=== PATIENT | female | born 1995 | race Hispanic/Latino ===

== ENCOUNTER 2017-09-24 21:29 | Emergency (ER) | payer BC ==
[~2017-09-24] VITALS: Ht 157.5 cm; Wt 90.7 kg
[2017-09-24] MEDS ORDERED: ONDANSETRON HCL INJ 2 MG/ML VIAL IV STA (21:48)
[2017-09-24] MEDS ORDERED: SODIUM CHLORIDE 0.9% 500ML 500 ML IV ONE (22:00)
[2017-09-24 23:57] VITALS: BP 150/90
== END 2017-09-24 22:50 | disposition home or self-care (01) ==
LOC: FSED 21:29
DX: R11.2 Nausea with vomiting, unspecified (principal); R19.7 Diarrhea, unspecified
CPT/HCPCS: 85025; 99283; J2405; J7040

== ENCOUNTER 2021-11-30 20:29 | Observation (INO) | payer BC, OTHER ==
[~2021-11-30] VITALS: Ht 157.5 cm; Wt 88.9 kg
[~2021-11-30 20:29] MED LIST: FENTANYL CITRATE/PF 100MCG/2 ML INJ ONE; MIDAZOLAM HCL 2 MG/2 ML VIAL ONE
[2021-11-30] MEDS ORDERED: ONDANSETRON HCL INJ 2MG/ML 2ML 2 MG/ML VIAL IV STA (21:44)
[2021-11-30] MEDS ORDERED: SODIUM CHLORIDE 0.9% 1000ML 1,000 ML IV SCH (21:45)
[2021-11-30] MEDS ORDERED: SODIUM CHLORIDE 0.9% 1000ML 1,000 ML ONE (22:33)
[2021-11-30] MEDS ORDERED: ONDANSETRON HCL INJ 2MG/ML 2ML 2 MG/ML VIAL ONE (22:33)
[2021-11-30] MEDS ORDERED: KETOROLAC TROMETHAMINE 30 MG/ML VIAL IV STA (22:39)
[2021-11-30] MEDS ORDERED: IOPAMIDOL 370 MG/ML 100 ML INFUS..BTL INJ ONE (23:05)
[2021-12-01] VITALS (8 sets, daily range): BP systolic 128–147; BP diastolic 61–90
[2021-12-01] MEDS ORDERED: SODIUM CHLORIDE 0.9% 500ML 500 ML IV ONE (00:15)
[2021-12-01] MEDS ORDERED: PROMETHAZINE 12.5MG/ NACL 0.9% 12.5 MG/50 ML BAG IV ONE (00:15)
[2021-12-01] MEDS ORDERED: SODIUM CHLORIDE 0.9% 500ML 500 ML ONE (00:25)
[2021-12-01] MEDS ORDERED: PROMETHAZINE HCL (IM) 25 MG/ML VIAL IM ONE (00:25)
[2021-12-01] MEDS ORDERED: KETOROLAC TROMETHAMINE 30 MG/ML VIAL ONE ×2 (00:27→13:56)
[2021-12-01] MEDS ORDERED: ONDANSETRON HCL INJ 2MG/ML 2ML 2 MG/ML VIAL IV PRN (01:45)
[2021-12-01] MEDS ORDERED: PROMETHAZINE HCL (IM) 25 MG/ML VIAL IM PRN (01:45)
[2021-12-01] MEDS ORDERED: PIPERACILLIN/TAZOBACTAM 3.375 GM VIAL ONE (02:12)
[2021-12-01] MEDS: SODIUM CHLORIDE 0.9% 1000ML 1,000 ML IV SCH ×3 (03:34→18:30)
[2021-12-01] MEDS: HYDROMORPHONE 1MG/1ML INJ IV PRN ×2 (04:23→08:41)
[2021-12-01] MEDS ORDERED: LIDOCAINE 1% W/EPINEPHRINE 20 ML VIAL ONE (12:26)
[2021-12-01] MEDS ORDERED: GLYCOPYRROLATE INJ 0.2 MG/ML VIAL ONE (13:56)
[2021-12-01] MEDS ORDERED: PROPOFOL IV EMULSION 10 MG/ML 20 ML VIAL ONE (13:56)
[2021-12-01] MEDS ORDERED: ONDANSETRON HCL INJ 2MG/ML 2ML 2 MG/ML VIAL ONE (13:56)
[2021-12-01] MEDS ORDERED: NEOSTIGMINE 1 MG/ML 10ML VIAL ONE (13:56)
[2021-12-01] MEDS ORDERED: SEVOFLURANE INHAL SOLN 250 ML PEN BTL ONE (13:56)
[2021-12-01] MEDS ORDERED: LIDOCAINE HCL 2% LOCAL INJ 5 ML SDV VIAL INJ ONE (13:56)
[2021-12-01] MEDS ORDERED: DEXAMETHASONE SOD PHOS INJ 4 MG/ML SDV ONE (13:56)
[2021-12-01] MEDS ORDERED: POVIDONE IODINE 0.05% 0.05 % ML PO ONE (13:56)
[2021-12-01] MEDS ORDERED: ROCURONIUM BROMIDE 10 MG/ML 5ML VIAL IV ONE (13:56)
[2021-12-01] MEDS: HYDROCODONE/APAP 7.5MG-325MG 1 EA TAB PO PRN (22:47)
[2021-12-02] VITALS: BP 126/72
[2021-12-02] MEDS: SODIUM CHLORIDE 0.9% 1000ML 1,000 ML IV SCH ×3 (02:00→13:20)
[2021-12-02 04:00] VITALS: BP 118/64
[2021-12-02] MEDS: HYDROCODONE/APAP 7.5MG-325MG 1 EA TAB PO PRN ×2 (05:20→13:15)
[2021-12-02 05:53] LABS: BASOPHILS % 0.2 % (0.0-1.0); EOSINOPHILS % 0.2 % (0.0-6.0); HEMATOCRIT 33.5 % (34.2-44.1); HEMOGLOBIN 10.8 g/dL (12.0-16.0); LYMPHOCYTES # (AUTO) 2.6 (1.0-3.2); LYMPHOCYTES % 23.1 % (18.0-39.1); MEAN CORPUSCULAR HEMOGLOBIN 28.6 pg (28-32); MEAN CORPUSCULAR HGB CONC 32.2 g/dL (31-35); MEAN CORPUSCULAR VOLUME 88.9 fL (81-99); MONOCYTES # (AUTO) 0.8 (0.2-0.8); MONOCYTES % 7.1 % (4.4-11.3); NEUTROPHILS # (AUTO) 7.7 (2.1-6.9); NEUTROPHILS % 69.1 % (38.7-80.0); PLATELET COUNT 284 x10e3/uL (140-360); RED BLOOD COUNT 3.77 x10e6/uL (3.6-5.1); RED CELL DISTRIBUTION WIDTH 13.1 % (11.7-14.4)
[2021-12-02 06:08] LABS: ANION GAP 12.1 mmol/L (8-16); CALCIUM 7.7 mg/dL (8.4-10.2); CREATININE, SERUM 0.61 mg/dL (0.57-1.11); POTASSIUM 3.1 mmol/L (3.5-5.1)
[2021-12-02 08:03] VITALS: BP 114/68
[2021-12-02 09:00] VITALS: BP 114/68
[2021-12-02 11:51] VITALS: BP 124/68
[2021-12-02 16:08] VITALS: BP 125/75
[2021-12-02] MEDS ORDERED: KEFLEX125 MG/5 M PO ×3 (19:28→19:34)
== END 2021-12-02 20:16 | disposition home or self-care (01) ==
LOC: FSED 21:04 → INTOOBSV 12-01 01:44 → ERHOLD 12-01 01:44 → MED/SURG3 12-01 02:43
PROVIDERS: ADMIT Surgery; ATTEND Surgery
DX: K35.890 Other acute appendicitis without perforation or gangrene (principal); E66.9 Obesity, unspecified; Z20.822 Contact with and (suspected) exposure to COVID-19
CPT/HCPCS: 36415; 44970; 74177; 80048 ×2; 80076; 81003; 81025; 85025 ×2; 88304; 96361 ×2; 96374 ×2; 99284; C1713; C1766; G0378 ×2; J1100; J1170; J1885; J2001; J2250; J2405 ×2; J2543 ×2; J2550; J2704; J2710; J3010; J7030 ×3; J7040; Q9967; U0002

== ENCOUNTER 2024-09-21 19:03 | Emergency (ER) | payer BC, OTHER ==
[~2024-09-21] VITALS: Ht 157.5 cm; Wt 102.5 kg
[~2024-09-21 19:03] MED LIST changes: -FENTANYL CITRATE/PF 100MCG/2 ML INJ ONE; +KEFLEX125 MG/5 M PO; -MIDAZOLAM HCL 2 MG/2 ML VIAL ONE
[2024-09-21 19:15] VITALS: TEMP 97.5
[2024-09-21] MEDS ORDERED: IOPAMIDOL 370 MG/ML 100 ML INFUS..BTL INJ ONE (19:35)
[2024-09-21] MEDS: ONDANSETRON HCL INJ 2MG/ML 2ML 2 MG/ML VIAL IV STA (20:01)
[2024-09-21] MEDS: FAMOTIDINE 20 MG/2 ML VIAL IV STA (20:01)
[2024-09-21] MEDS: KETOROLAC TROMETHAMINE 30 MG/ML VIAL IV ONE (20:02)
[2024-09-21] MEDS: SODIUM CHLORIDE 0.9% 1000ML 1,000 ML IV SCH (20:05)
[2024-09-21 23:04] VITALS: PULSE 60; RESP 18
[2024-09-21] MEDS ORDERED: ONDANSETRON ODT4 MG PO (23:47)
[2024-09-21] MEDS ORDERED: PANTOPRAZOLE SO40 MG PO (23:48)
[2024-09-21 23:56] VITALS: BP 162/81; O2SAT 99
== END 2024-09-21 23:59 | disposition home or self-care (01) ==
LOC: FSED 19:08
DX: R06.02 Shortness of breath (principal); K29.00 Acute gastritis without bleeding; R07.89 Other chest pain; R10.13 Epigastric pain; R11.2 Nausea with vomiting, unspecified
CPT/HCPCS: 71260; 74177; 80048; 80076; 81003; 81025; 82553; 84484; 85025; 93005; 99284; J1885; J2405; J7030; Q9967